=== PATIENT | female | born 1975 | race Caucasian/White ===

== ENCOUNTER 2017-06-21 07:37 | Day surgery (SDC) | payer BC ==
--- NOTE | 2017-06-20 19:15 | GHP ---
[f rep st] PREOP HISTORY AND PHYSICAL DATE OF ADMISSION: 06/21/2017 SERVICE: Gynecology HISTORY OF PRESENT ILLNESS: Patient is a 41-year-old G3, P1, A1, who has been diagnosed with a misse d AB at 12 weeks. The patient was down having an ultrasound with maternal specialist when the missed AB was diagnosed. 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 The patient wanted to proceed with a D and C as soon as possible. The patient will b e advised as to the risks and benefits of surgery and consent form will be signed at bedside on 06/21. The patient has not had any cramping or bleeding. care has been with [facility] since 8 weeks gestation. Early ultrasound confirmin g dating was performed on 05/11/2017, with a 6-week IUP. Another followup ultrasound at 9 weeks cont inued to show normal cardiac activity. The uterus does have multiple fibroids approximately 1- 1/2 to 2 cm in size. Bilaterally, the ovaries were normal. Results of the Verifi testing were avail able on 06/16/2017, and the patient was notified. She was given information about setting up a confi rmatory CVS testing. LABORATORY: Include maternal blood type A negative with negative antibody screen. RPR nonr eactive. Rubella immune. Hepatitis B surface antigen negative. HIV negative. Initial CBC showed h emoglobin 12.6, hematocrit 37%, platelets 257,000. Urinalysis and culture negative. Again, Verifi t esting showing trisomy 13. PAST MEDICAL HISTORY: Pruritic rash 4 days that lasted 6 weeks in 2009. Abnormal Pap sme ar at age 18 with a colposcopy performed that was normal and negative Pap smears since. Infrequent m igraines, but frequent headaches. PAST SURGICAL HISTORY: D and C due to a SAB in 2011. PAST OBSTETRIC HISTORY: In 2009, a viable female delivered at term vaginally with an epidural in [facility]. During that , there was low progesterone. The patient did take progesterone suppl ementation. In 2011, a SAB managed with a D and C at 9 weeks. ALLERGIES: The patient has no known drug allergies. CURRENT MEDICATIONS: vitamins, low-dose baby aspirin daily, progesterone 200 mg q.h.s. SOCIAL HISTORY: The patient is . Lives with her and daughter. The patient is a nons moker. No alcohol or drug use. PHYSICAL EXAMINATION: GENERAL: Upon admission, the patient is a well-developed, well-nourished Cauc female in no physical distress, but emotionally upset. VITAL SIGNS: The patient is clinically afebrile. Blood pressure 142/64. ABDOMEN: Soft and nontender. PELVIC: Deferred. EXTREMITIES: Nontender. No edema. 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 Advanced maternal age. Rh negative. PLAN: We will perform a D and C on 06/21/2017, on the Gynecology Service. The patient received preo perative antibiotics and SCDs on her lower extremities due to the surgery. The patient will be given the option of Anora genetic testing to confirm the diagnosis after the D and C. She will also recei ve RhoGAM after the procedure. /[id number]/MODL
[~2017-06-21 07:37] MED LIST: DOXYCYCLINE HYCLATE 100 MG CAP/TAB PO ONE; LR 1,000 ML IV ONE
--- NOTE | 2017-06-21 08:44 | PDANEPAE ---
ANE History of Present Illness Missed AB about 12 weeks ANE Past Medical History - Pulmonary History Hx Sleep Apnea: No - Endocrine History Hx Diabetes: No ANE Review of Systems Review of Systems: - Exercise capacity METS (RN): 4 METS ANE Patient History - Allergies Allergies/Adverse Reactions: No Known Allergies Allergy (Unverified 06/20/17 18:24) - NPO status NPO Since - Liquids (Date): 06/20/17 NPO Since - Liquids (Time): 23:00 NPO Since - Solids (Date): 06/20/17 NPO Since - Solids (Time): 18:30 - Anes Hx Anes Hx: no prior problems - Smoking Hx Smoking Status: Never smoked - Family Anes Hx Family Anes Hx: neg - N/A ANE Labs/Vital Signs - Vital Signs Blood Pressure: 113/77 Heart Rate: 91 Respiratory Rate: 20 O2 Sat (%): 94 Height: 165.1 cm Weight: 63.503 kg ANE Physical Exam - Airway Neck exam: FROM Mallampati Score: Class 2 Mouth exam: normal dental/mouth exam - Pulmonary Pulmonary: no respiratory distress - Cardiovascular Cardiovascular: regular rate and rhythym - ASA Status ASA Status: II ANE Anesthesia Plan Anesthesia Plan: MAC
[2017-06-21] MEDS ORDERED: PROPOFOL 200 MG/20 ML VIAL ONE ×5 (08:54→10:10)
[2017-06-21] MEDS ORDERED: LIDOCAINE 2% 5 ML SDV ONE (08:55)
[2017-06-21] MEDS ORDERED: KETOROLAC 30 MG/1 ML SDV ONE (10:37)
[2017-06-21] MEDS ORDERED: NALOXONE HCL 0.4 MG/ML INJ IVP PRN (10:53)
[2017-06-21] MEDS ORDERED: fentaNYL 100 MCG/2 ML INJ IVP PRN (10:53)
[2017-06-21] MEDS ORDERED: ONDANSETRON 4 MG/2 ML VIAL IVP PRN (10:53)
--- NOTE | 2017-06-21 10:53 | POSTANESTH ---
Post Anesthetic Evaluation Cardiovascular Status: Normal, Stable Respiratory Status: Normal, Stable Level of Consciousness/Mental Status: Can Participate in Eval Pain Control: Adequate, Prn Tx Ordered Nausea/Vomiting Control: Adequate, Prn Tx Ordered Complications Possibly Related to Anesthesia: None Noted
[2017-06-21] MEDS ORDERED: DOXYCYCLINE HYCLATE 100 MG CAP/TAB PO ONE (12:18)
--- NOTE | 2017-06-21 12:22 | POSTOPPROG ---
Post Op Note Date of Operation: 06/21/17 Surgeon: Julianne Quarles Anesthesiologist: Bg Carroll MD Anesthesia: Other (Specify) (Mask general) Pre-op Diagnosis: MAB 12 wks Post-op Diagnosis: MAB 12 wks Indication: found on u/s on 06/21 to have MAB, trisomy 13 on verify testing Procedure: D and C under u/s guidance Findings: cx slowly dilated to 12.5 soy dilator, suction and currettage done, ut em Inf/Abcess present in the surg proc area at time of surgery?: No Depth: Organ Space EBL: 50-100 Total fluids administered: 600 ml Specimen(s): POCs
[2017-06-21 13:04] VITALS: TEMP 98.6
[2017-06-21 13:32] VITALS: RESP 20
[2017-06-21 13:36] VITALS: BP 142/82; PULSE 75; O2SAT 100
== END 2017-06-21 12:28 | disposition home or self-care (01) ==
LOC: FOBOP 07:37
PROVIDERS: ATTEND Obstetrics & Gynecology
PROC: 10D18ZZ Extraction of Products of Conception, Retained, Via Natural or Artificial Opening Endoscopic (ICD-10-PCS; principal; 2017-06-21)
DX: O02.1 Missed abortion (principal); O35.1XX0 Maternal care for (suspected) chromosomal abnormality in fetus, not applicable or unspecified; O34.10 Maternal care for benign tumor of corpus uteri, unspecified trimester; D25.9 Leiomyoma of uterus, unspecified; O09.521 Supervision of elderly multigravida, first trimester; Z3A.12 12 weeks gestation of pregnancy
CPT/HCPCS: J1885; J2704